=== PATIENT | female | born 1950 | race Caucasian/White ===

== ENCOUNTER 2022-09-17 11:32 | Inpatient (IN) ==
[2022-09-17] MEDS ORDERED: Promethazine 6.25 MG in Water for inj. (sterile) 20 ML IVPB PRN (12:27)
[2022-09-17] MEDS ORDERED: *HR* OxyCODONE Immed Rel 5 MG TABLET PO PRN ×2 (12:27→18:48)
[2022-09-17] MEDS ORDERED: *HR* HYDROmorphone PF 0.5 MG/0.5 ML SYRINGE IVP PRN (12:27)
[2022-09-17] MEDS ORDERED: Ondansetron 4 MG/2 ML VIAL IVP PRN ×2 (12:27→18:48)
[2022-09-17] MEDS ORDERED: CeFAZolin Syr 2,000MG/20 ML 2,000 MG/20 ML SYRINGE IVPB ONE (12:39)
[2022-09-17] MEDS ORDERED: Ringers Solution, Lactated 1,000 ML IVC SCH (12:45)
[2022-09-17] MEDS ORDERED: Vancomycin 1,250 MG/262.5 ML IV.SOLN IVPB ONE (13:06)
[2022-09-17] MEDS ORDERED: *HR* FentaNYL (PF) 100 MCG/2 ML VIAL ONE (13:52)
[2022-09-17] MEDS ORDERED: Heparin 1,000 UNITS/500 mL 500 ML ONE (13:52)
[2022-09-17] MEDS ORDERED: Lidocaine -MPF 2% 2 ML VIAL ONE (13:53)
[2022-09-17] MEDS ORDERED: *HR* Propofol 200 MG/20 ML VIAL IVP ONE (13:54)
[2022-09-17] MEDS ORDERED: *HR* Succinylcholine 200 MG/10 ML VIAL IVP ONE (13:54)
[2022-09-17] MEDS ORDERED: *HR* Rocuronium Bromide 50 MG/5 ML VIAL ONE (13:55)
[2022-09-17] MEDS ORDERED: Ondansetron 4 MG/2 ML VIAL ONE (13:56)
[2022-09-17] MEDS ORDERED: *HR* Phenylephrine 10 MG/ML VIAL ONE (13:57)
[2022-09-17] MEDS ORDERED: *HR* Remifentanil 1 MG VIAL IVP ONE ×2 (14:00→16:42)
[2022-09-17] MEDS ORDERED: Lidocaine HCL 4 ML Topical Solution (Laryng-O-Jet Kit Sterile Pak) TP ONE (14:00)
[2022-09-17] MEDS ORDERED: Bupivacaine-MPF 0.25% 10 ML VIAL ONE (14:04)
[2022-09-17] MEDS ORDERED: Heparin 1,000 UNITS/500 mL 1,000 ML ONE (14:04)
[2022-09-17] MEDS ORDERED: Protamine Sulfate 50 MG/5 ML VIAL IVP ONE (14:05)
[2022-09-17] MEDS ORDERED: NiCARdipine 2.5 MG/10 ML Syringe IVPB ONE (14:11)
[2022-09-17] MEDS ORDERED: EPHEDrine sulfate 50 MG/10 ML VIAL IVP ONE (15:05)
[2022-09-17] MEDS ORDERED: Vancomycin 1,000 MG, Sodium Chloride IRRigation 1,000 ML IR ONE (15:10)
[2022-09-17] MEDS ORDERED: *HR* Heparin 5,000 UNIT/ML VIAL ONE (15:53)
[2022-09-17] MEDS ORDERED: Sugammadex Sodium 200 MG/2 ML VIAL IV ONE (16:06)
[2022-09-17] MEDS ORDERED: *HR* Labetalol 20 MG/4 ML SYRINGE IVP ONE (17:22)
[2022-09-17 18:35] VITALS: O2SAT 93
[2022-09-17 18:46] VITALS: BP 116/75; PULSE 66; TEMP 97.1
[2022-09-17] MEDS ORDERED: *HR* HYDROcodone/Acet 5/325 mg TABLET PO PRN (18:48)
[2022-09-17] MEDS ORDERED: D5% in Water 1,000 ML IVC PRN (18:48)
[2022-09-17] MEDS ORDERED: *HR* Dextrose 50 % in Water (Syg) 50 ML SYRINGE IVP PRN (18:48)
[2022-09-17] MEDS ORDERED: *HR* Labetalol 20 MG/4 ML SYRINGE IVP PRN (18:48)
[2022-09-17] MEDS ORDERED: 0.9 % Sodium Chloride 1,000 ML IVC SCH (18:48)
[2022-09-17] MEDS ORDERED: Dextrose Gel 15 GM/37.5 ML TUBE PO PRN ×2 (18:48)
[2022-09-17] MEDS ORDERED: Acetaminophen 325 MG TABLET PO PRN (18:48)
[2022-09-17] MEDS ORDERED: *HR* Metoprolol 5 MG/5 ML VIAL IVP SCH (18:48)
[2022-09-17] MEDS ORDERED: Naloxone 0.4 MG/ML INJ IVP PRN (18:48)
[2022-09-17] MEDS ORDERED: Patient Taking Own Medication 1 EACH PO SCH (21:00)
[2022-09-17] MEDS ORDERED: FLUoxetine 20 MG CAPSULE PO SCH (21:00)
[2022-09-17] MEDS ORDERED: Insulin LISPRO 300 UNITS/3 ML VIAL SUBQ SCH (21:00)
[2022-09-17] MEDS ORDERED: Gabapentin 400 MG CAPSULE PO SCH (21:00)
[2022-09-17] MEDS ORDERED: Famotidine 20 MG TABLET PO SCH (21:00)
[2022-09-17] MEDS ORDERED: Nystatin POWDER 30 GM BOTTLE TP SCH (21:00)
[2022-09-17] MEDS ORDERED: *HR* HYDROcodone/Acet 5/325 mg TABLET PO ONE (21:38)
[2022-09-17] MEDS ORDERED: Gabapentin 400 MG CAPSULE PO ONE (21:38)
[2022-09-17] MEDS ORDERED: Famotidine 20 MG TABLET PO ONE (21:38)
[2022-09-17] MEDS ORDERED: FLUoxetine 20 MG CAPSULE PO ONE (21:38)
[2022-09-18] MEDS ORDERED: Vancomycin 1,250 MG/262.5 ML IV.SOLN IVPB ONE (02:00)
[2022-09-18] MEDS ORDERED: Levothyroxine 25 MCG TABLET PO SCH (06:30)
[2022-09-18] MEDS ORDERED: Insulin LISPRO 300 UNITS/3 ML VIAL SUBQ SCH (07:30)
[2022-09-18] MEDS ORDERED: Furosemide 40 MG TABLET PO SCH (09:00)
[2022-09-18] MEDS ORDERED: Spironolactone 25 MG TABLET PO SCH (09:00)
[2022-09-18] MEDS ORDERED: CeFAZolin 2 GM/120 ML BAG IVPB SCH (22:00)
[2022-09-19] MEDS ORDERED: *HR* Heparin 5,000 UNIT/ML VIAL SQ SCH ×2 (06:00)
== END 2022-09-17 23:59 | disposition other institution (70) | DRG 39 ==
LOC: SAMDAY 11:32 → 2NNU 18:51
PROVIDERS: ADMIT Surgery; ATTEND Surgery